=== PATIENT | female | born 1995 | race African-American/Black ===

== ENCOUNTER 2016-11-04 22:31 | Emergency (ER) | payer MEDICAID ==
[~2016-11-04] VITALS: Ht 165.1 cm; Wt 50.0 kg
[~2016-11-04 22:31] MED LIST: ARIP10TA14 PO; CARB200T PO; CLON2TAB4 PO; ESCI20TA PO; GABA-531; LEVE1000 PO; MIRT15TA6 PO; PHEN100C12; QUET200T PO
[2016-11-04] MEDS ORDERED: LORAZEPAM 2MG/ML CPJ ONE (22:42)
[2016-11-04] MEDS ORDERED: SODIUM CHLORIDE 0.9% 1,000 ML IV ONE (23:02)
[2016-11-04] MEDS ORDERED: LORAZEPAM 2MG/ML CPJ IV ONE ×2 (23:15)
[2016-11-04] MEDS ORDERED: LEVETIRACETAM 500MG PREMIX 100 ML IV ONE (23:15)
[2016-11-04 23:44] VITALS: BP 107/71
== END 2016-11-05 00:08 | disposition home or self-care (01) ==
LOC: ER 22:32
DX: G40.909 Epilepsy, unspecified, not intractable, without status epilepticus (principal); Z79.899 Other long term (current) drug therapy
CPT/HCPCS: 96374; 96376; 99284; J2060; Z7610; J7030

== ENCOUNTER 2017-08-14 20:45 | Inpatient (IN) | payer MEDICAID ==
[~2017-08-14] VITALS: Ht 170.2 cm; Wt 66.7 kg
[~2017-08-14 20:45] MED LIST changes: +ABIL10 PO; -ARIP10TA14 PO; +ETOMIDATE 2MG/ML 10ML VIAL IV ONE; +STERILE WATER FOR INJECTION 10ML VIAL ONE; +VECURONIUM BROMIDE 10 MG/VIAL IV ONE
[2017-08-14] MEDS ORDERED: SODIUM CHLORIDE 0.9% 1,000 ML IV ONE (20:57)
[2017-08-14] MEDS ORDERED: LEVETIRACETAM 1000MG/100ML 100 ML IV ONE (21:00)
[2017-08-14] MEDS ORDERED: LORAZEPAM 2MG/ML CPJ ONE ×3 (21:00→21:26)
[2017-08-14] MEDS ORDERED: LORAZEPAM 2MG/ML CPJ IV ONE ×2 (21:00→23:00)
[2017-08-14] MEDS ORDERED: VECURONIUM BROMIDE 10 MG/VIAL IV ONE (21:30)
[2017-08-14] MEDS ORDERED: PROPOFOL 10MG/ML 100ML 100 ML IV ONE (21:30)
[2017-08-14] MEDS ORDERED: ETOMIDATE 2MG/ML 10ML VIAL IV ONE (21:30)
[2017-08-14] MEDS ORDERED: MIDAZOLAM HCL 50 MG in DEXTROSE 5% WATER 40 ML IV ONE (21:30)
[2017-08-14] MEDS ORDERED: MIDAZOLAM 50 MG in DEXTROSE 5% WATER 50ML IV NR (21:45)
[2017-08-14] MEDS ORDERED: MIDAZOLAM HCL 50 MG in DEXTROSE 5% WATER 40 ML IV NR (21:45)
[2017-08-14 22:59] LABS: BG BASE EXCESS -1.4 mmol/L (-2.0-2.0); BG CARBOXYHEMOGLOBIN 0.5 % (0.5-1.5); BG DEOXYHEMOGLOBIN 0.2 % (0.0-5.0); BG FRACTION INSPIRED OXYGEN 100; BG HCO3 ACT 23.1 mmol/L (22.0-26.0); BG METHEMOGLOBIN 0.4 % (0.0-1.5); BG OXYGEN SATURATION 99.8 % (92.0-98.5); BG OXYHEMOGLOBIN 98.9 % (94.0-97.0); BG PCO2 37.9 mmHg (35.0-45.0); BG PH 7.402 (7.350-7.450); BG PO2 570.8 mmHg (75.0-100.0); BG SAMPLE SITE RIGHT BRACHIAL; BG TIDAL VOLUME(mL) 500 mL; BG VENT MODE VENT - A/C; BG VENT RATE 14 set
[2017-08-14 23:02] LABS: CARBON DIOXIDE 25 mEq/L (21-32); CHLORIDE 108 mEq/L (98-107)
[2017-08-14 23:03] LABS: PARTIAL THROMBOPLASTIN TIME 27.2 sec (23.4-31.0); PROTHROMBIN TIME 10.4 sec (9.4-11.6)
[2017-08-14 23:04] LABS: BASOPHILS % 0.6 % (0.0-2.0); EOSINOPHILS % 3.2 % (0.0-5.0); HEMOGLOBIN. 11.5 g/dL (12.0-16.0); LYMPHOCYTES % 34.4 % (20.0-50.0); MEAN CORPUSCULAR HEMOGLOBIN 33.1 pg (28.0-32.0); MEAN CORPUSCULAR VOLUME 98.3 fL (81.0-99.0); MEAN PLATELET VOLUME 8.3 fl (7.4-10.4); MONOCYTES % 7.5 % (2.0-8.0); NEUTROPHILS % 54.3 % (40.0-76.0); PLATELET 258 x1000/uL (130-400); RED BLOOD CELL COUNT 3.46 mill/uL (4.2-5.4)
[2017-08-14 23:08] LABS: ETHANOL BLOOD < 10 mg/dL; TROPONIN I < 0.02 ng/mL (0.00-0.04)
[2017-08-14 23:09] LABS: HCG SCREEN NEGATIVE
[2017-08-14 23:11] LABS: CARBAMAZEPINE < 0.5 ug/mL (4-12); PHENOBARBITAL < 2.1 ug/mL (15.0-40.0); VALPROIC ACID < 3.0 ug/mL (50-100)
[2017-08-14 23:28] LABS: CLARITY URINE CLEAR (CLEAR); COLOR URINE YELLOW (YELLOW); KETONES URINE NEGATIVE (NEGATIVE); LEUKOCYTE ESTERASE URINE 2+ (NEGATIVE); NITRITE URINE NEGATIVE (NEGATIVE); OCCULT BLOOD URINE NEGATIVE (NEGATIVE); PROTEIN URINE NEGATIVE (NEGATIVE); SPECIFIC GRAVITY URINE 1.015 (1.005-1.030)
[2017-08-14 23:42] LABS: *AMPHETAMINES SCREEN URINE NEGATIVE (NEGATIVE); *BARBITURATES SCREEN URINE NEGATIVE (NEGATIVE); *COCAINE SCREEN URINE NEGATIVE (NEGATIVE); METHADONE URINE SCREEN NEGATIVE (NEGATIVE); OPIATES URINE SCREEN NEGATIVE (NEGATIVE); PHENCYCLIDINE URINE SCREEN NEGATIVE (NEGATIVE)
[2017-08-14] MEDS ORDERED: PHENYTOIN SODIUM 1,000 MG in SODIUM CHLORIDE 0.9% 100 ML IV ONE (23:45)
[2017-08-15] VITALS (79 sets, daily range): BP systolic 85–134; BP diastolic 49–84
[2017-08-15 00:16] LABS: *BENZODIAZEPINES SCREEN URINE PRESUMTIVE POSITIVE (NEGATIVE); CANNABINOID URINE SCREEN PRESUMTIVE POSITIVE (NEGATIVE)
[2017-08-15] MEDS ORDERED: MIDAZOLAM HCL 100 MG in SODIUM CHLORIDE 0.9% 100 ML IV PRN (02:00)
[2017-08-15] MEDS ORDERED: MIDAZOLAM HCL 100 MG in SODIUM CHLORIDE 0.9% 80 ML IV PRN (02:30)
[2017-08-15] MEDS ORDERED: PANTOPRAZOLE SODIUM 40 MG/VIAL IV NR (04:00)
[2017-08-15] MEDS ORDERED: FENTANYL CITRATE/PF 500 MCG in SODIUM CHLORIDE 0.9% 40 ML IV PRN (04:00)
[2017-08-15 04:55] LABS: HEMATOCRIT 30.8 % (36.0-48.0); HEMOGLOBIN 10.2 g/dL (12.0-16.0); MEAN CORPUSCULAR HEMOGLOBIN 32.2 pg (28.0-32.0); MEAN CORPUSCULAR VOLUME 97.4 fL (81.0-99.0); PLATELET 230 x1000/uL (130-400); RED BLOOD CELL COUNT 3.16 mill/uL (4.2-5.4); RED CELL DISTRIBUTION WIDTH 12.7 % (11.6-14.6)
[2017-08-15 05:39] LABS: CARBON DIOXIDE 23 mEq/L (21-32); CHLORIDE 110 mEq/L (98-107)
[2017-08-15] MEDS: FENTANYL CITRATE/PF 500 MCG in SODIUM CHLORIDE 0.9% 40 ML IV PRN ×2 (05:53→21:44)
[2017-08-15] MEDS: PHENYTOIN SODIUM 100MG/2ML VIAL IV SCH ×3 (05:54→21:17)
[2017-08-15] MEDS: DEXT 5%/0.45% NACL 1000ML 1,000 ML IV SCH ×2 (05:56→17:32)
[2017-08-15 08:45] LABS: BG BASE EXCESS -0.6 mmol/L (-2.0-2.0); BG CARBOXYHEMOGLOBIN 0.3 % (0.5-1.5); BG DEOXYHEMOGLOBIN 0.4 % (0.0-5.0); BG FRACTION INSPIRED OXYGEN 50; BG HCO3 ACT 23.1 mmol/L (22.0-26.0); BG METHEMOGLOBIN 0.2 % (0.0-1.5); BG OXYGEN SATURATION 99.6 % (92.0-98.5); BG OXYHEMOGLOBIN 99.1 % (94.0-97.0); BG PCO2 34.7 mmHg (35.0-45.0); BG PH 7.441 (7.350-7.450); BG PO2 281.6 mmHg (75.0-100.0); BG SAMPLE SITE RIGHT RADIAL; BG TIDAL VOLUME(mL) 500 mL; BG TOTAL HEMOGLOBIN 11.3 g/dL (12.0-18.0); BG VENT MODE VENT - A/C; BG VENT RATE 14 set
[2017-08-15] MEDS ORDERED: LEVETIRACETAM 500MG TABLET PO SCH (09:00)
[2017-08-15] MEDS: PANTOPRAZOLE SODIUM 40 MG/VIAL IV SCH (09:04)
[2017-08-15] MEDS: ENOXAPARIN 40MG/0.4ML SYR SUBCUT SCH (09:05)
[2017-08-15] MEDS: PROPOFOL 10MG/ML 100ML 100 ML IV PRN ×2 (09:40→19:12)
[2017-08-15 10:07] LABS: PHOSPHORUS 2.8 mg/dL (2.5-4.9)
[2017-08-15] MEDS ORDERED: POTASSIUM CHLORIDE INJ 40 MEQ in DEXT 5% WATER 250 ML IV NR (11:00)
[2017-08-15] MEDS: CEFTRIAXONE 2 G in DEXTROSE 5% WATER 50 ML IV SCH (12:13)
[2017-08-15] MEDS ORDERED: THIAMINE HCL 100 MG in SODIUM CHLORIDE 0.9% 49 ML IV NR (15:30)
[2017-08-15] MEDS: CARBAMAZEPINE 200MG TABLET PO SCH (17:31)
[2017-08-15] MEDS: LEVETIRACETAM 500MG TABLET PO SCH (21:16)
[2017-08-15] MEDS: QUETIAPINE FUMARATE 100MG TABLET PO SCH (21:16)
[2017-08-16] VITALS (37 sets, daily range): BP systolic 97–142; BP diastolic 52–90
[2017-08-16] MEDS: PROPOFOL 10MG/ML 100ML 100 ML IV PRN (00:24)
[2017-08-16] MEDS ORDERED: FENTANYL CITRATE/PF 1,000 MCG in SODIUM CHLORIDE 0.9% 80 ML IV PRN (03:07)
[2017-08-16 05:56] LABS: HEMATOCRIT 33.6 % (36.0-48.0); MEAN CORPUSCULAR HEMOGLOBIN 32.1 pg (28.0-32.0); MEAN CORPUSCULAR VOLUME 98.4 fL (81.0-99.0); PLATELET 244 x1000/uL (130-400); RED BLOOD CELL COUNT 3.41 mill/uL (4.2-5.4); RED CELL DISTRIBUTION WIDTH 12.9 % (11.6-14.6)
[2017-08-16] MEDS: PHENYTOIN SODIUM 100MG/2ML VIAL IV SCH ×3 (06:08→22:36)
[2017-08-16 06:52] LABS: CARBON DIOXIDE 28 mEq/L (21-32); CHLORIDE 113 mEq/L (98-107)
[2017-08-16] MEDS: QUETIAPINE FUMARATE 100MG TABLET PO SCH ×2 (08:14→21:00)
[2017-08-16] MEDS: PANTOPRAZOLE SODIUM 40 MG/VIAL IV SCH (08:14)
[2017-08-16] MEDS: CARBAMAZEPINE 200MG TABLET PO SCH ×3 (08:14→18:13)
[2017-08-16] MEDS: ENOXAPARIN 40MG/0.4ML SYR SUBCUT SCH (08:15)
[2017-08-16] MEDS: LEVETIRACETAM 500MG TABLET PO SCH ×2 (08:15→22:36)
[2017-08-16 10:57] LABS: BG BASE EXCESS 0.6 mmol/L (-2.0-2.0); BG CARBOXYHEMOGLOBIN 0.3 % (0.5-1.5); BG DEOXYHEMOGLOBIN 0.9 % (0.0-5.0); BG HCO3 ACT 25.4 mmol/L (22.0-26.0); BG METHEMOGLOBIN 0.3 % (0.0-1.5); BG OXYGEN SATURATION 99.1 % (92.0-98.5); BG OXYHEMOGLOBIN 98.5 % (94.0-97.0); BG PCO2 41.4 mmHg (35.0-45.0); BG PH 7.406 (7.350-7.450); BG PO2 200.4 mmHg (75.0-100.0); BG SAMPLE SITE RIGHT RADIAL; BG TIDAL VOLUME(mL) 450 mL; BG TOTAL HEMOGLOBIN 11.5 g/dL (12.0-18.0); BG VENT MODE VENT - SIMV; BG VENT RATE 12 set
[2017-08-16] MEDS ORDERED: PROPOFOL 10MG/ML 100ML 100 ML IV PRN (11:00)
[2017-08-16] MEDS: CEFTRIAXONE 2 G in DEXTROSE 5% WATER 50 ML IV SCH (11:07)
[2017-08-16 14:32] LABS: BG CARBOXYHEMOGLOBIN 0.3 % (0.5-1.5); BG DEOXYHEMOGLOBIN 1.2 % (0.0-5.0); BG FRACTION INSPIRED OXYGEN 30; BG HCO3 ACT 25.6 mmol/L (22.0-26.0); BG OXYGEN SATURATION 98.8 % (92.0-98.5); BG OXYHEMOGLOBIN 98.5 % (94.0-97.0); BG PCO2 41.2 mmHg (35.0-45.0); BG PH 7.412 (7.350-7.450); BG PO2 150.3 mmHg (75.0-100.0); BG PRESSURE SUPPORT 8; BG SAMPLE SITE LEFT RADIAL; BG TOTAL HEMOGLOBIN 12.1 g/dL (12.0-18.0); BG VENT MODE VENT - CPAP
[2017-08-16] MEDS ORDERED: ARIPIPRAZOLE 10MG TABLET PO SCH (18:15)
[2017-08-16] MEDS ORDERED: CLONAZEPAM 1MG TABLET PO SCH (20:00)
[2017-08-17] VITALS (12 sets, daily range): BP systolic 93–122; BP diastolic 45–71
[2017-08-17] MEDS: PHENYTOIN SODIUM 100MG/2ML VIAL IV SCH (05:03)
== END 2017-08-17 06:45 | disposition left against medical advice (07) | DRG 133 ==
LOC: ER 20:50 → CVICU 23:45 → EDBEDREQ 23:49 → ENRESERV 08-15 00:07
PROVIDERS: ADMIT Hospitalist; ATTEND Hospitalist
PROC: 5A1945Z Respiratory Ventilation, 24-96 Consecutive Hours (ICD-10-PCS; principal; 2017-08-14)
PROC: 0BH17EZ Insertion of Endotracheal Airway into Trachea, Via Natural or Artificial Opening (ICD-10-PCS; 2017-08-14)
PROC: 02HV33Z Insertion of Infusion Device into Superior Vena Cava, Percutaneous Approach (ICD-10-PCS; 2017-08-15)
PROC: B548ZZA Ultrasonography of Superior Vena Cava, Guidance (ICD-10-PCS; 2017-08-15)
DX: J96.00 Acute respiratory failure, unspecified whether with hypoxia or hypercapnia (principal); G40.411 Other generalized epilepsy and epileptic syndromes, intractable, with status epilepticus; R65.10 Systemic inflammatory response syndrome (SIRS) of non-infectious origin without acute organ dysfunction; N30.90 Cystitis, unspecified without hematuria; F12.90 Cannabis use, unspecified, uncomplicated; D64.9 Anemia, unspecified; Z53.21 Procedure and treatment not carried out due to patient leaving prior to being seen by health care provider; Z78.1 Physical restraint status; Z79.899 Other long term (current) drug therapy; Z91.14 Patient's other noncompliance with medication regimen; G40.901 Epilepsy, unspecified, not intractable, with status epilepticus
CPT/HCPCS: 31500; 36415; 36569; 36600; 51702; 70450; 70551; 71045; 76937; 80048; 80053; 80156; 80165; 80184; 80185; 80305; 81001; 82375; 82805; 83735; 84100; 84478; 84484; 84703; 85025; 85027; 85610; 85730; 86850; 86900; 87070; 87086; 93005; 94002; 94003; 96365; 99291; A4216; C1725; C1769; C9113; G0482; J0696; J1165; J1650; J1953; J2060; J2250; J2704; J3010; J3411; J3480; J3490; J7030; J7050; J7060; A4315

== ENCOUNTER 2021-06-25 17:54 | Emergency (ER) | payer MEDICAID ==
[~2021-06-25] VITALS: Ht 165.1 cm; Wt 145.0 kg
[~2021-06-25 17:54] MED LIST changes: +CLON2TAB11 PO; -CLON2TAB4 PO; -ETOMIDATE 2MG/ML 10ML VIAL IV ONE; -GABA-531; +GABA-532; +MIRT-89 PO; -MIRT15TA6 PO; -STERILE WATER FOR INJECTION 10ML VIAL ONE; -VECURONIUM BROMIDE 10 MG/VIAL IV ONE
[2021-06-25 17:58] VITALS: BP 134/93
[2021-06-25 21:40] LABS: BASOPHILS % 0.6 % (0.0-2.0); EOSINOPHILS % 1.4 % (0.0-5.0); HEMATOCRIT. 35.5 % (36.0-48.0); HEMOGLOBIN. 11.6 g/dL (12.0-16.0); MEAN CORPUSCULAR HEMOGLOBIN 32.5 pg (28.0-32.0); MEAN CORPUSCULAR VOLUME 99.7 fL (81.0-99.0); MEAN PLATELET VOLUME 8.5 fl (7.4-10.4); MONOCYTES % 8.8 % (2.0-8.0); NEUTROPHILS % 58.2 % (40.0-76.0); PLATELET 197 x1000/uL (130-400); RED BLOOD CELL COUNT 3.56 mill/uL (4.2-5.4); RED CELL DISTRIBUTION WIDTH 14.7 % (11.6-14.6)
[2021-06-25 21:51] LABS: CHLORIDE 112 mEq/L (98-107)
[2021-06-25 21:55] LABS: ETHANOL BLOOD < 10 mg/dL
[2021-06-26] MEDS ORDERED: ONDA4TAB11 PO (15:10)
== END 2021-06-25 22:55 | disposition left against medical advice (07) ==
LOC: ER 17:54
DX: G43.909 Migraine, unspecified, not intractable, without status migrainosus (principal); R50.9 Fever, unspecified; Z53.21 Procedure and treatment not carried out due to patient leaving prior to being seen by health care provider
CPT/HCPCS: 36415; 80053; 80185; 80320; 82962; 85025; G0480

== ENCOUNTER 2021-06-26 06:52 | Emergency (ER) | payer MEDICAID ==
[~2021-06-26] VITALS: Ht 157.5 cm; Wt 63.2 kg
[2021-06-26] MEDS ORDERED: LORAZEPAM 2MG/ML CPJ IV PRN (07:00)
[2021-06-26] MEDS ORDERED: LEVETIRACETAM 1000MG PREMIX 100 ML IV ONE (07:00)
[2021-06-26] MEDS ORDERED: SODIUM CHLORIDE 0.9% 1,000 ML IV ONE (07:00)
[2021-06-26 08:04] LABS: CHLORIDE 110 mEq/L (98-107)
[2021-06-26 08:08] LABS: ETHANOL BLOOD < 10 mg/dL
[2021-06-26 08:10] LABS: BASOPHILS % 0.6 % (0.0-2.0); EOSINOPHILS % 0.6 % (0.0-5.0); HEMATOCRIT. 33.9 % (36.0-48.0); MEAN CORPUSCULAR HEMOGLOBIN 32.5 pg (28.0-32.0); MONOCYTES % 10.3 % (2.0-8.0); NEUTROPHILS % 53.5 % (40.0-76.0); PLATELET 268 x1000/uL (130-400); RED BLOOD CELL COUNT 3.38 mill/uL (4.2-5.4)
[2021-06-26] MEDS ORDERED: LORAZEPAM 2MG/ML CPJ IM STA (08:27)
[2021-06-26] MEDS ORDERED: LIDOCAINE HCL 1% 10 MG/ML 10ML VIAL ONE (10:22)
[2021-06-26] MEDS ORDERED: PHENYTOIN SODIUM 100MG/2ML VIAL IV ONE (12:45)
[2021-06-26 13:07] LABS: CLARITY URINE CLEAR (CLEAR); COLOR URINE YELLOW (YELLOW); KETONES URINE NEGATIVE (NEGATIVE); LEUKOCYTE ESTERASE URINE NEGATIVE (NEGATIVE); NITRITE URINE NEGATIVE (NEGATIVE); OCCULT BLOOD URINE NEGATIVE (NEGATIVE); PROTEIN URINE NEGATIVE (NEGATIVE); SPECIFIC GRAVITY URINE 1.015 (1.005-1.030)
[2021-06-26 13:46] LABS: *AMPHETAMINES SCREEN URINE NEGATIVE (NEGATIVE); CANNABINOID URINE SCREEN PRESUMTIVE POSITIVE (NEGATIVE)
[2021-06-26 13:47] LABS: *BARBITURATES SCREEN URINE NEGATIVE (NEGATIVE); *COCAINE SCREEN URINE NEGATIVE (NEGATIVE); METHADONE URINE SCREEN NEGATIVE (NEGATIVE); PHENCYCLIDINE URINE SCREEN NEGATIVE (NEGATIVE)
[2021-06-26 13:49] LABS: *BENZODIAZEPINES SCREEN URINE PRESUMTIVE POSITIVE (NEGATIVE)
[2021-06-26 13:50] LABS: OPIATES URINE SCREEN PRESUMTIVE POSITIVE (NEGATIVE)
[2021-06-26] MEDS ORDERED: ONDA4TAB11 PO (15:10)
[2021-06-26 16:00] VITALS: BP 124/72
== END 2021-06-26 16:28 | disposition home or self-care (01) ==
LOC: ER 06:52 → CANBEDREQ 16:44
DX: G40.909 Epilepsy, unspecified, not intractable, without status epilepticus (principal); F12.10 Cannabis abuse, uncomplicated; Z79.899 Other long term (current) drug therapy
CPT/HCPCS: 36415; 70450; 71045; 76937; 80053; 80185; 80305; 80320; 81003; 81025; 82140; 82962; 83880; 84484; 85025; 93005; 96365; 96366; 96372; 96375; 99291; C1725; J1165; J1953; J2060; J3490; J7030; G0480

== ENCOUNTER 2021-07-08 18:55 | Inpatient (IN) | payer MEDICAID, OTHER ==
[~2021-07-08] VITALS: Ht 167.6 cm; Wt 66.8 kg
[~2021-07-08 18:55] MED LIST changes: +ONDA4TAB11 PO
[2021-07-08] MEDS ORDERED: LORAZEPAM 2MG/ML CPJ IM ONE (20:00)
[2021-07-08] MEDS ORDERED: MIDAZOLAM HCL 2 MG/2 ML VIAL IM ONE ×3 (20:15→20:30)
[2021-07-08] MEDS ORDERED: LEVETIRACETAM 500MG PREMIX 100 ML IV ONE ×8 (20:15→20:45)
[2021-07-08] MEDS ORDERED: LEVETIRACETAM 1,500 MG in SODIUM CHLORIDE 0.9% 100 ML IV ONE (21:00)
[2021-07-08] MEDS ORDERED: LEVETIRACETAM 1,500 MG in SODIUM CHLORIDE 0.9% 100 ML IV SCH (21:00)
[2021-07-08] MEDS ORDERED: MIDAZOLAM HCL 100 MG in SODIUM CHLORIDE 0.9% 100 ML IV PRN (21:30)
[2021-07-08] MEDS ORDERED: FENTANYL CITRATE 2,500 MCG in SODIUM CHLORIDE 0.9% 200 ML IV PRN (21:30)
[2021-07-08 22:14] LABS: BG BASE EXCESS -4.1 mmol/L (-2.0-2.0); BG CARBOXYHEMOGLOBIN 0.4 % (0.5-1.5); BG DEOXYHEMOGLOBIN 4.7 % (0.0-5.0); BG FRACTION INSPIRED OXYGEN 100; BG HCO3 ACT 20.1 mmol/L (22.0-26.0); BG METHEMOGLOBIN 0.1 % (0.0-1.5); BG OXYGEN SATURATION 95.3 % (92.0-98.5); BG OXYHEMOGLOBIN 94.8 % (94.0-97.0); BG PCO2 33.7 mmHg (35.0-45.0); BG PH 7.394 (7.350-7.450); BG PO2 75.8 mmHg (75.0-100.0); BG SAMPLE SITE CL; BG TOTAL HEMOGLOBIN 10.5 g/dL (12.0-18.0); BG TOTAL RESPIRATORY RATE 14 b/min; BG VENT MODE VENT - AC
[2021-07-08] MEDS ORDERED: LORAZEPAM 2MG/ML CPJ IV ONE (22:45)
[2021-07-08] MEDS ORDERED: PROPOFOL 10MG/ML 100ML 100 ML IV SCH (22:45)
[2021-07-09] VITALS (44 sets, daily range): BP systolic 99–150; BP diastolic 66–94
[2021-07-09 00:15] LABS: BG BASE EXCESS -1.2 mmol/L (-2.0-2.0); BG CARBOXYHEMOGLOBIN 0.3 % (0.5-1.5); BG DEOXYHEMOGLOBIN 0.1 % (0.0-5.0); BG FRACTION INSPIRED OXYGEN 100; BG HCO3 ACT 23.9 mmol/L (22.0-26.0); BG METHEMOGLOBIN 0.2 % (0.0-1.5); BG OXYGEN SATURATION 99.9 % (92.0-98.5); BG OXYHEMOGLOBIN 99.4 % (94.0-97.0); BG PCO2 41.2 mmHg (35.0-45.0); BG PH 7.381 (7.350-7.450); BG SAMPLE SITE RIGHT BRACHIAL; BG VENT MODE VENT - AC
[2021-07-09 02:27] LABS: BASOPHILS % 0.2 % (0.0-2.0); EOSINOPHILS % 0.4 % (0.0-5.0); HEMATOCRIT. 32.4 % (36.0-48.0); HEMOGLOBIN. 10.6 g/dL (12.0-16.0); LYMPHOCYTES % 12.6 % (20.0-50.0); MEAN CORPUSCULAR HEMOGLOBIN 32.7 pg (28.0-32.0); MEAN CORPUSCULAR VOLUME 99.3 fL (81.0-99.0); MEAN PLATELET VOLUME 7.6 fl (7.4-10.4); MONOCYTES % 10.9 % (2.0-8.0); NEUTROPHILS % 75.9 % (40.0-76.0); PLATELET 200 x1000/uL (130-400); RED BLOOD CELL COUNT 3.26 mill/uL (4.2-5.4)
[2021-07-09 02:32] LABS: CHLORIDE 111 mEq/L (98-107)
[2021-07-09 04:08] LABS: ETHANOL BLOOD < 10 mg/dL
[2021-07-09] MEDS ORDERED: PROPOFOL 10MG/ML 100ML 100 ML IV PRN (04:30)
[2021-07-09] MEDS: DEXT 5%/0.9% NACL KCL 20MEQ/L 1,000 ML IV SCH ×2 (06:44→16:11)
[2021-07-09] MEDS ORDERED: VECURONIUM BROMIDE 10 MG/VIAL IV ONE (07:58)
[2021-07-09] MEDS ORDERED: SODIUM CHLORIDE 0.9% 10ML VIAL ONE ×2 (07:58→08:00)
[2021-07-09] MEDS ORDERED: ETOMIDATE 2MG/ML 10ML VIAL IV ONE (08:00)
[2021-07-09] MEDS ORDERED: IPRATROPIUM/ALBUTEROL 0.5-3(2.5)MG/3ML NEB HHN PRN (09:00)
[2021-07-09] MEDS ORDERED: LEVETIRACETAM 500MG PREMIX 100 ML IV SCH (09:00)
[2021-07-09] MEDS: PANTOPRAZOLE SODIUM 40 MG/VIAL IV SCH (09:14)
[2021-07-09] MEDS: LEVETIRACETAM 1,000 MG in SODIUM CHLORIDE 0.9% 100 ML IV SCH ×2 (09:15→21:24)
[2021-07-09] MEDS ORDERED: *PATIENT'S OWN MEDICATION STORAGE XX SCH (09:30)
[2021-07-09] MEDS: MIDAZOLAM HCL 100 MG in SODIUM CHLORIDE 0.9% 80 ML IV PRN ×2 (09:44→17:14)
[2021-07-09] MEDS: IPRATROPIUM/ALBUTEROL 0.5-3(2.5)MG/3ML NEB HHN SCH ×2 (13:17→21:48)
[2021-07-09] MEDS: PHENYTOIN SODIUM 100MG/2ML VIAL IV SCH ×2 (13:55→21:26)
[2021-07-09] MEDS ORDERED: CLONIDINE 0.1MG TABLET PO PRN (15:30)
[2021-07-09] MEDS ORDERED: MAGNESIUM/ALUMINUM HYDROXIDE/SIMETHICONE 30ML UDC PO PRN (15:30)
[2021-07-09] MEDS ORDERED: ONDANSETRON HCL 4MG/2ML INJ IV PRN (15:30)
[2021-07-09] MEDS ORDERED: DOCUSATE SODIUM 100MG CAPSULE PO PRN (15:30)
[2021-07-09] MEDS ORDERED: ACETAMINOPHEN 325MG TABLET PO PRN (15:30)
[2021-07-09] MEDS ORDERED: HYDROCODONE/ACETAMINOPHEN 5/325MG TABLET PO PRN (15:30)
[2021-07-09] MEDS ORDERED: NALOXONE HCL 0.4MG/ML VIAL IV PRN (15:45)
[2021-07-09] MEDS: ENOXAPARIN 40MG/0.4ML SYR SUBCUT SCH (16:11)
[2021-07-09] MEDS: LORAZEPAM 2MG/ML CPJ IV PRN (18:32)
[2021-07-09] MEDS: FENTANYL CITRATE/PF 2,500 MCG in SODIUM CHLORIDE 0.9% 200 ML IV PRN (19:20)
[2021-07-09 21:36] LABS: *AMPHETAMINES SCREEN URINE NEGATIVE (NEGATIVE); *BARBITURATES SCREEN URINE NEGATIVE (NEGATIVE)
[2021-07-09 21:37] LABS: *COCAINE SCREEN URINE NEGATIVE (NEGATIVE); METHADONE URINE SCREEN NEGATIVE (NEGATIVE); OPIATES URINE SCREEN NEGATIVE (NEGATIVE); PHENCYCLIDINE URINE SCREEN NEGATIVE (NEGATIVE)
[2021-07-09 21:41] LABS: *BENZODIAZEPINES SCREEN URINE PRESUMTIVE POSITIVE (NEGATIVE); CANNABINOID URINE SCREEN PRESUMTIVE POSITIVE (NEGATIVE)
[2021-07-10] VITALS (48 sets, daily range): BP systolic 112–139; BP diastolic 66–88
[2021-07-10] MEDS: IPRATROPIUM/ALBUTEROL 0.5-3(2.5)MG/3ML NEB HHN SCH ×4 (02:29→20:24)
[2021-07-10] MEDS: DEXT 5%/0.9% NACL KCL 20MEQ/L 1,000 ML IV SCH ×3 (02:38→21:06)
[2021-07-10] MEDS: MIDAZOLAM HCL 100 MG in SODIUM CHLORIDE 0.9% 80 ML IV PRN ×3 (03:41→22:14)
[2021-07-10] MEDS: FENTANYL CITRATE/PF 2,500 MCG in SODIUM CHLORIDE 0.9% 200 ML IV PRN ×3 (03:42→22:15)
[2021-07-10] MEDS: PHENYTOIN SODIUM 100MG/2ML VIAL IV SCH ×3 (05:31→21:06)
[2021-07-10 05:55] LABS: HEMATOCRIT. 30.7 % (36.0-48.0); HEMOGLOBIN. 10.4 g/dL (12.0-16.0); MEAN CORPUSCULAR HEMOGLOBIN 33.5 pg (28.0-32.0); MEAN CORPUSCULAR VOLUME 99.4 fL (81.0-99.0); MEAN PLATELET VOLUME 8.3 fl (7.4-10.4); PLATELET 191 x1000/uL (130-400); RED BLOOD CELL COUNT 3.09 mill/uL (4.2-5.4); RED CELL DISTRIBUTION WIDTH 14.4 % (11.6-14.6)
[2021-07-10 06:00] LABS: CHLORIDE 115 mEq/L (98-107)
[2021-07-10 06:07] LABS: PHOSPHORUS 2.8 mg/dL (2.5-4.9)
[2021-07-10 06:08] LABS: LDL CHOLESTEROL 70 mg/dL (5-100)
[2021-07-10 06:09] LABS: HDL CHOLESTEROL 45 mg/dL (40-59); T4 FREE 1.14 ng/dL (0.76-1.46)
[2021-07-10 07:53] LABS: BG BASE EXCESS -3.2 mmol/L (-2.0-2.0); BG CARBOXYHEMOGLOBIN 0.3 % (0.5-1.5); BG DEOXYHEMOGLOBIN 0.7 % (0.0-5.0); BG HCO3 ACT 20.6 mmol/L (22.0-26.0); BG METHEMOGLOBIN 0.3 % (0.0-1.5); BG OXYGEN SATURATION 99.3 % (92.0-98.5); BG OXYHEMOGLOBIN 98.7 % (94.0-97.0); BG PCO2 32.7 mmHg (35.0-45.0); BG PH 7.417 (7.350-7.450); BG PO2 185.4 mmHg (75.0-100.0); BG SAMPLE SITE RIGHT RADIAL; BG TOTAL HEMOGLOBIN 10.8 g/dL (12.0-18.0); BG VENT MODE VENT - AC
[2021-07-10] MEDS: PANTOPRAZOLE SODIUM 40 MG/VIAL IV SCH (08:32)
[2021-07-10] MEDS: LEVETIRACETAM 1,000 MG in SODIUM CHLORIDE 0.9% 100 ML IV SCH ×2 (08:32→20:38)
[2021-07-10 14:57] LABS: BG BASE EXCESS -4.4 mmol/L (-2.0-2.0); BG CARBOXYHEMOGLOBIN 0.3 % (0.5-1.5); BG DEOXYHEMOGLOBIN 6.2 % (0.0-5.0); BG FRACTION INSPIRED OXYGEN 40; BG HCO3 ACT 22.5 mmol/L (22.0-26.0); BG METHEMOGLOBIN 0.2 % (0.0-1.5); BG OXYGEN SATURATION 93.8 % (92.0-98.5); BG OXYHEMOGLOBIN 93.3 % (94.0-97.0); BG PCO2 49.3 mmHg (35.0-45.0); BG PH 7.277 (7.350-7.450); BG PO2 82.2 mmHg (75.0-100.0); BG SAMPLE SITE RIGHT RADIAL; BG TOTAL HEMOGLOBIN 11.1 g/dL (12.0-18.0); BG TOTAL RESPIRATORY RATE 20 b/min; BG VENT MODE VENT - CPAP
[2021-07-10] MEDS: ENOXAPARIN 40MG/0.4ML SYR SUBCUT SCH (15:59)
[2021-07-10 18:18] LABS: PLATELET ESTIMATE NORMAL
[2021-07-10 21:35] LABS: HCG SCREEN NEGATIVE
[2021-07-10] MEDS: LORAZEPAM 2MG/ML CPJ IV PRN (23:21)
[2021-07-11] VITALS (21 sets, daily range): BP systolic 114–141; BP diastolic 70–96
[2021-07-11] MEDS: IPRATROPIUM/ALBUTEROL 0.5-3(2.5)MG/3ML NEB HHN SCH ×2 (00:55→08:54)
[2021-07-11] MEDS: FENTANYL CITRATE/PF 2,500 MCG in SODIUM CHLORIDE 0.9% 200 ML IV PRN (05:07)
[2021-07-11] MEDS: MIDAZOLAM HCL 100 MG in SODIUM CHLORIDE 0.9% 80 ML IV PRN (05:08)
[2021-07-11] MEDS: PHENYTOIN SODIUM 100MG/2ML VIAL IV SCH (05:11)
[2021-07-11 06:10] LABS: CHLORIDE 112 mEq/L (98-107)
[2021-07-11 06:12] LABS: HEMATOCRIT. 29.1 % (36.0-48.0); HEMOGLOBIN. 9.7 g/dL (12.0-16.0); MEAN CORPUSCULAR HEMOGLOBIN 32.6 pg (28.0-32.0); MEAN CORPUSCULAR VOLUME 98.1 fL (81.0-99.0); MEAN PLATELET VOLUME 8.7 fl (7.4-10.4); PLATELET 175 x1000/uL (130-400); RED BLOOD CELL COUNT 2.97 mill/uL (4.2-5.4); RED CELL DISTRIBUTION WIDTH 14.2 % (11.6-14.6)
[2021-07-11] MEDS: PANTOPRAZOLE SODIUM 40 MG/VIAL IV SCH (08:00)
[2021-07-11] MEDS: DEXT 5%/0.9% NACL KCL 20MEQ/L 1,000 ML IV SCH (08:00)
[2021-07-11] MEDS: LEVETIRACETAM 1,000 MG in SODIUM CHLORIDE 0.9% 100 ML IV SCH (08:00)
[2021-07-11] MEDS ORDERED: RACEPINEPHRINE 2.25% 0.5ML NEB VIAL HHN SCH (10:30)
[2021-07-11] MEDS ORDERED: RACEPINEPHRINE 2.25% 0.5ML NEB VIAL HHN PRN (10:30)
[2021-07-11 14:18] LABS: PLATELET ESTIMATE NORMAL
== END 2021-07-11 10:45 | disposition left against medical advice (07) | DRG 53 ==
LOC: ER 18:55 → MICUNO 23:59 → EDBEDREQ 07-09 00:06 → EDBEDREQDT 07-09 00:06 → EDBEDREQTM 07-09 00:06 → ENRESERV 07-09 01:08 → MICUNO 07-09 06:36
PROVIDERS: ADMIT Internal Medicine; ATTEND Internal Medicine
PROC: 0BH17EZ Insertion of Endotracheal Airway into Trachea, Via Natural or Artificial Opening (ICD-10-PCS; principal; 2021-07-08)
PROC: 5A1945Z Respiratory Ventilation, 24-96 Consecutive Hours (ICD-10-PCS; 2021-07-08)
PROC: B548ZZA Ultrasonography of Superior Vena Cava, Guidance (ICD-10-PCS; 2021-07-08)
PROC: 02HV33Z Insertion of Infusion Device into Superior Vena Cava, Percutaneous Approach (ICD-10-PCS; 2021-07-08)
PROC: 4A10X4Z Monitoring of Central Nervous Electrical Activity, External Approach (ICD-10-PCS; 2021-07-10)
DX: G40.901 Epilepsy, unspecified, not intractable, with status epilepticus (principal); J96.00 Acute respiratory failure, unspecified whether with hypoxia or hypercapnia; D64.9 Anemia, unspecified; Z53.29 Procedure and treatment not carried out because of patient's decision for other reasons; T42.6X6A Underdosing of other antiepileptic and sedative-hypnotic drugs, initial encounter; Y92.89 Other specified places as the place of occurrence of the external cause; Z79.899 Other long term (current) drug therapy; Z78.1 Physical restraint status
CPT/HCPCS: 36415; 36600; 71045; 71250; 80048; 80053; 80061; 80185; 80305; 80320; 82375; 82805; 83605; 83735; 84100; 84439; 84443; 84484; 84703; 85025; 87070; 93005; 93970; 95816; 99285; C9113; J1165; J1650; J1953; J2060; J2250; J2704; J3010; J3490; J7050; A4315; G0480

== ENCOUNTER 2021-10-15 13:40 | Inpatient (IN) | payer OTHER ==
[~2021-10-15] VITALS: Ht 165.1 cm; Wt 71.4 kg
[2021-10-15] MEDS ORDERED: LEVETIRACETAM 500MG PREMIX 100 ML IV ONE ×4 (14:15)
[2021-10-15 14:30] LABS: BASOPHILS % 0.8 % (0.0-2.0); EOSINOPHILS % 3.9 % (0.0-5.0); HEMATOCRIT. 33.9 % (36.0-48.0); LYMPHOCYTES % 47.9 % (20.0-50.0); MEAN CORPUSCULAR HEMOGLOBIN 30.9 pg (28.0-32.0); MEAN CORPUSCULAR VOLUME 95.1 fL (81.0-99.0); MEAN PLATELET VOLUME 7.9 fl (7.4-10.4); MONOCYTES % 9.9 % (2.0-8.0); NEUTROPHILS % 37.5 % (40.0-76.0); PLATELET 241 x1000/uL (130-400); RED BLOOD CELL COUNT 3.56 mill/uL (4.2-5.4); RED CELL DISTRIBUTION WIDTH 14.5 % (11.6-14.6)
[2021-10-15 14:37] LABS: CHLORIDE 108 mEq/L (98-107)
[2021-10-15 14:41] LABS: ETHANOL BLOOD < 10 mg/dL
[2021-10-15] MEDS ORDERED: LIDOCAINE HCL/PF 1% 10 MG/ML 5ML VIAL ONE (14:46)
[2021-10-15 14:48] LABS: B-HCG QUANTITATIVE < 1 mIU/mL (<3)
[2021-10-15] MEDS ORDERED: ETOMIDATE 2MG/ML 10ML VIAL IV ONE (15:45)
[2021-10-15] MEDS ORDERED: PROPOFOL 200MG/20ML VIAL IV NR (16:00)
[2021-10-15] MEDS ORDERED: FENTANYL CITRATE/PF 50MCG/ML 1ML VIAL IV NR (16:00)
[2021-10-15] MEDS ORDERED: PROPOFOL 10MG/ML 100ML 100 ML IV PRN (16:30)
[2021-10-15] MEDS ORDERED: FENTANYL CITRATE/PF 50MCG/ML 2ML VIAL IV ONE (18:15)
[2021-10-15] MEDS ORDERED: CLONIDINE 0.1MG TABLET PO PRN (18:45)
[2021-10-15] MEDS ORDERED: ONDANSETRON HCL 4MG/2ML INJ IV PRN (18:45)
[2021-10-15] MEDS ORDERED: IPRATROPIUM/ALBUTEROL 0.5-3(2.5)MG/3ML NEB HHN PRN (18:45)
[2021-10-15 19:00] LABS: CLARITY URINE CLOUDY (CLEAR); COLOR URINE RED (YELLOW); KETONES URINE NEGATIVE (NEGATIVE); LEUKOCYTE ESTERASE URINE TRACE (NEGATIVE); NITRITE URINE NEGATIVE (NEGATIVE); OCCULT BLOOD URINE 3+ (NEGATIVE); PH URINE 7.5 (4.5-8.0); PROTEIN URINE 1+ (NEGATIVE); UROBILINOGEN URINE 0.2 E.U./dL (0.2-1.0)
[2021-10-15 19:12] LABS: *AMPHETAMINES SCREEN URINE NEGATIVE (NEGATIVE); *BARBITURATES SCREEN URINE NEGATIVE (NEGATIVE)
[2021-10-15 19:13] LABS: *COCAINE SCREEN URINE NEGATIVE (NEGATIVE); METHADONE URINE SCREEN NEGATIVE (NEGATIVE); OPIATES URINE SCREEN NEGATIVE (NEGATIVE); PHENCYCLIDINE URINE SCREEN NEGATIVE (NEGATIVE)
[2021-10-15 19:16] LABS: *BENZODIAZEPINES SCREEN URINE PRESUMTIVE POSITIVE (NEGATIVE); CANNABINOID URINE SCREEN PRESUMTIVE POSITIVE (NEGATIVE)
[2021-10-15] MEDS ORDERED: LEVETIRACETAM 500MG PREMIX 100 ML IV SCH (21:00)
[2021-10-15] MEDS ORDERED: FENTANYL 2500MCG/250ML PMX 250 ML IV PRN (22:45)
[2021-10-15] MEDS: LORAZEPAM 2MG/ML CPJ IV PRN (22:54)
[2021-10-15 23:55] VITALS: BP 68/42
[2021-10-15 23:57] VITALS: BP 125/85
[2021-10-16] VITALS (93 sets, daily range): BP systolic 107–149; BP diastolic 68–111
[2021-10-16 00:09] LABS: BG BASE EXCESS 1.5 mmol/L (-2.0-2.0); BG CARBOXYHEMOGLOBIN 0.3 % (0.5-1.5); BG DEOXYHEMOGLOBIN 0.1 % (0.0-5.0); BG FRACTION INSPIRED OXYGEN 100; BG HCO3 ACT 25.7 mmol/L (22.0-26.0); BG METHEMOGLOBIN 0.2 % (0.0-1.5); BG OXYGEN SATURATION 99.9 % (92.0-98.5); BG OXYHEMOGLOBIN 99.4 % (94.0-97.0); BG PCO2 38.8 mmHg (35.0-45.0); BG PH 7.439 (7.350-7.450); BG PO2 464.7 mmHg (75.0-100.0); BG SAMPLE SITE RIGHT RADIAL; BG TOTAL HEMOGLOBIN 10.5 g/dL (12.0-18.0); BG TOTAL RESPIRATORY RATE 12 b/min; BG VENT MODE VENT - AC
[2021-10-16] MEDS ORDERED: PROPOFOL 10MG/ML 100ML 100 ML IV PRN (00:45)
[2021-10-16] MEDS: MIDAZOLAM HCL 100 MG in SODIUM CHLORIDE 0.9% 80 ML IV PRN (00:55)
[2021-10-16] MEDS: FENTANYL 2500MCG/250ML PMX 250 ML IV PRN ×2 (00:55→23:08)
[2021-10-16] MEDS: LORAZEPAM 2MG/ML CPJ IV PRN ×2 (00:58→22:46)
[2021-10-16 02:50] LABS: CREATINE KINASE 148 IU/L (26-192)
[2021-10-16 02:51] LABS: CREATINE KINASE MB FRACTION < 1.0 ng/mL (0.5-3.6)
[2021-10-16 05:48] LABS: CHLORIDE 111 mEq/L (98-107)
[2021-10-16 05:55] LABS: BASOPHILS % 0.7 % (0.0-2.0); EOSINOPHILS % 2.7 % (0.0-5.0); HEMATOCRIT. 28.7 % (36.0-48.0); HEMOGLOBIN. 9.7 g/dL (12.0-16.0); MEAN CORPUSCULAR HEMOGLOBIN 31.8 pg (28.0-32.0); MEAN CORPUSCULAR VOLUME 93.8 fL (81.0-99.0); MEAN PLATELET VOLUME 7.8 fl (7.4-10.4); NEUTROPHILS % 57.6 % (40.0-76.0); PLATELET 232 x1000/uL (130-400); RED BLOOD CELL COUNT 3.06 mill/uL (4.2-5.4)
[2021-10-16 06:00] LABS: LDL CHOLESTEROL 66 mg/dL (5-100)
[2021-10-16 06:02] LABS: HDL CHOLESTEROL 61 mg/dL (40-59)
[2021-10-16 06:05] LABS: CREATINE KINASE 143 IU/L (26-192)
[2021-10-16 06:07] LABS: CREATINE KINASE MB FRACTION < 1.0 ng/mL (0.5-3.6)
[2021-10-16 07:46] LABS: BG BASE EXCESS 1.4 mmol/L (-2.0-2.0); BG CARBOXYHEMOGLOBIN 0.2 % (0.5-1.5); BG DEOXYHEMOGLOBIN 0.5 % (0.0-5.0); BG HCO3 ACT 25.5 mmol/L (22.0-26.0); BG METHEMOGLOBIN 0.1 % (0.0-1.5); BG OXYGEN SATURATION 99.5 % (92.0-98.5); BG OXYHEMOGLOBIN 99.2 % (94.0-97.0); BG PCO2 38.4 mmHg (35.0-45.0); BG PO2 237.8 mmHg (75.0-100.0); BG SAMPLE SITE RIGHT BRACHIAL; BG TOTAL HEMOGLOBIN 12.4 g/dL (12.0-18.0); BG VENT MODE VENT - AC
[2021-10-16] MEDS: PHENYTOIN SODIUM 300MG in SODIUM CHLORIDE 0.9% 50ML IV SCH ×2 (09:26→16:50)
[2021-10-16] MEDS: LEVETIRACETAM 500MG PREMIX 100 ML IV SCH ×2 (09:26→21:49)
[2021-10-16] MEDS: ENOXAPARIN 40MG/0.4ML SYR SUBCUT SCH ×2 (09:27→21:49)
[2021-10-16] MEDS: PROPOFOL 10MG/ML 100ML 100 ML IV PRN ×3 (10:52→19:31)
[2021-10-16] MEDS: PANTOPRAZOLE SODIUM 40 MG/VIAL IV SCH (11:43)
[2021-10-16] MEDS: SODIUM CHLORIDE 0.9% 1,000 ML IV SCH (11:43)
[2021-10-17] VITALS (95 sets, daily range): BP systolic 92–139; BP diastolic 40–99
[2021-10-17] MEDS: PROPOFOL 10MG/ML 100ML 100 ML IV PRN ×4 (00:15→17:15)
[2021-10-17] MEDS ORDERED: PHENYTOIN SODIUM 100MG/2ML VIAL IV ONE (00:33)
[2021-10-17] MEDS: PHENYTOIN SODIUM 300MG in SODIUM CHLORIDE 0.9% 50ML IV SCH (01:07)
[2021-10-17] MEDS: SODIUM CHLORIDE 0.9% 1,000 ML IV SCH ×3 (05:00→22:18)
[2021-10-17 05:53] LABS: BASOPHILS % 0.8 % (0.0-2.0); EOSINOPHILS % 3.6 % (0.0-5.0); HEMATOCRIT. 29.1 % (36.0-48.0); HEMOGLOBIN. 9.5 g/dL (12.0-16.0); LYMPHOCYTES % 29.8 % (20.0-50.0); MEAN CORPUSCULAR HEMOGLOBIN 30.8 pg (28.0-32.0); MEAN CORPUSCULAR VOLUME 94.8 fL (81.0-99.0); MEAN PLATELET VOLUME 8.3 fl (7.4-10.4); MONOCYTES % 13.2 % (2.0-8.0); NEUTROPHILS % 52.6 % (40.0-76.0); PLATELET 241 x1000/uL (130-400); RED BLOOD CELL COUNT 3.07 mill/uL (4.2-5.4); RED CELL DISTRIBUTION WIDTH 14.4 % (11.6-14.6)
[2021-10-17 06:10] LABS: CHLORIDE 115 mEq/L (98-107)
[2021-10-17] MEDS ORDERED: PROPOFOL 10MG/ML 100ML 100 ML IV PRN (07:45)
[2021-10-17] MEDS: ENOXAPARIN 40MG/0.4ML SYR SUBCUT SCH (08:03)
[2021-10-17 08:41] LABS: BG BASE EXCESS -2.5 mmol/L (-2.0-2.0); BG CARBOXYHEMOGLOBIN 0.3 % (0.5-1.5); BG DEOXYHEMOGLOBIN 1.7 % (0.0-5.0); BG FRACTION INSPIRED OXYGEN 30; BG HCO3 ACT 22.9 mmol/L (22.0-26.0); BG METHEMOGLOBIN 0.3 % (0.0-1.5); BG OXYGEN SATURATION 98.3 % (92.0-98.5); BG OXYHEMOGLOBIN 97.7 % (94.0-97.0); BG PCO2 42.1 mmHg (35.0-45.0); BG PH 7.354 (7.350-7.450); BG PO2 126.7 mmHg (75.0-100.0); BG SAMPLE SITE RIGHT BRACHIAL; BG VENT MODE VENT - AC
[2021-10-17] MEDS: LEVETIRACETAM 500MG PREMIX 100 ML IV SCH (08:52)
[2021-10-17] MEDS: PANTOPRAZOLE SODIUM 40 MG/VIAL IV SCH (08:52)
[2021-10-17] MEDS ORDERED: NON FORMULARY PATIENT HOME MED XX SCH (11:00)
[2021-10-17] MEDS: ARIPIPRAZOLE 5MG TABLET PO SCH (12:37)
[2021-10-17] MEDS: PHENYTOIN SODIUM EXTENDED 100MG CAPSULE PO SCH ×3 (12:37→21:02)
[2021-10-17] MEDS: CITALOPRAM HYDROBROMIDE 10MG TABLET PO SCH (12:38)
[2021-10-17] MEDS: LEVETIRACETAM 1000MG PREMIX 100 ML IV SCH ×2 (13:09→23:47)
[2021-10-17] MEDS: CARBAMAZEPINE 200MG TABLET PO SCH ×2 (14:33→17:13)
[2021-10-17] MEDS: FENTANYL 2500MCG/250ML PMX 250 ML IV PRN (16:56)
[2021-10-17] MEDS: MIDAZOLAM HCL 100 MG in SODIUM CHLORIDE 0.9% 80 ML IV PRN (16:57)
[2021-10-17] MEDS: MIRTAZAPINE 15MG TABLET PO SCH (17:13)
[2021-10-18] VITALS (71 sets, daily range): BP systolic 92–145; BP diastolic 28–92
[2021-10-18] MEDS ORDERED: PROPOFOL 10MG/ML 100ML 100 ML IV PRN
[2021-10-18 06:15] LABS: BASOPHILS % 0.4 % (0.0-2.0); EOSINOPHILS % 3.1 % (0.0-5.0); HEMOGLOBIN. 9.3 g/dL (12.0-16.0); LYMPHOCYTES % 26.9 % (20.0-50.0); MEAN CORPUSCULAR HEMOGLOBIN 31.5 pg (28.0-32.0); MEAN CORPUSCULAR VOLUME 94.9 fL (81.0-99.0); MONOCYTES % 12.9 % (2.0-8.0); NEUTROPHILS % 56.7 % (40.0-76.0); PLATELET 231 x1000/uL (130-400); RED BLOOD CELL COUNT 2.95 mill/uL (4.2-5.4); RED CELL DISTRIBUTION WIDTH 14.1 % (11.6-14.6)
[2021-10-18 06:23] LABS: CHLORIDE 113 mEq/L (98-107)
[2021-10-18] MEDS: CARBAMAZEPINE 200MG TABLET PO SCH ×2 (06:26→17:00)
[2021-10-18] MEDS: PHENYTOIN SODIUM EXTENDED 100MG CAPSULE PO SCH ×2 (06:26→14:00)
[2021-10-18] MEDS: PROPOFOL 10MG/ML 100ML 100 ML IV PRN (06:36)
[2021-10-18 07:42] LABS: BG BASE EXCESS -1.4 mmol/L (-2.0-2.0); BG CARBOXYHEMOGLOBIN 0.3 % (0.5-1.5); BG DEOXYHEMOGLOBIN 1.2 % (0.0-5.0); BG HCO3 ACT 22.8 mmol/L (22.0-26.0); BG METHEMOGLOBIN 0.1 % (0.0-1.5); BG OXYGEN SATURATION 98.8 % (92.0-98.5); BG OXYHEMOGLOBIN 98.4 % (94.0-97.0); BG PCO2 36.5 mmHg (35.0-45.0); BG PH 7.414 (7.350-7.450); BG PO2 136.7 mmHg (75.0-100.0); BG SAMPLE SITE RIGHT RADIAL; BG TOTAL HEMOGLOBIN 9.7 g/dL (12.0-18.0); BG VENT MODE VENT - AC
[2021-10-18] MEDS: FENTANYL 2500MCG/250ML PMX 250 ML IV PRN (08:30)
[2021-10-18] MEDS: PANTOPRAZOLE SODIUM 40 MG/VIAL IV SCH (09:21)
[2021-10-18] MEDS: LEVETIRACETAM 1000MG PREMIX 100 ML IV SCH ×2 (09:21→22:29)
[2021-10-18] MEDS: CITALOPRAM HYDROBROMIDE 10MG TABLET PO SCH (09:22)
[2021-10-18] MEDS: ENOXAPARIN 40MG/0.4ML SYR SUBCUT SCH (09:22)
[2021-10-18] MEDS: ARIPIPRAZOLE 5MG TABLET PO SCH (09:23)
[2021-10-18] MEDS ORDERED: PHENYTOIN 100 MG/4 ML UDC NG SCH (14:00)
[2021-10-18] MEDS: SODIUM CHLORIDE 0.9% 1,000 ML IV SCH (14:45)
[2021-10-18] MEDS ORDERED: NALOXONE HCL 0.4MG/ML VIAL IV PRN (16:30)
[2021-10-18] MEDS: MIRTAZAPINE 15MG TABLET PO SCH (17:00)
[2021-10-18] MEDS: MORPHINE SULFATE 2 MG/ML CPJ (NOT FOR IM USE) IV PRN ×2 (17:33→22:29)
[2021-10-18] MEDS ORDERED: PHENOL/SODIUM PHENOLATE 1.4% SRPAY 177ML MT PRN (18:00)
[2021-10-18] MEDS: PHENYTOIN 100 MG/4 ML UDC NG SCH (19:03)
[2021-10-19] VITALS (10 sets, daily range): BP systolic 63–147; BP diastolic 30–79
[2021-10-19] MEDS: PHENYTOIN 100 MG/4 ML UDC NG SCH ×2 (01:07→06:06)
[2021-10-19 06:01] LABS: BASOPHILS % 0.5 % (0.0-2.0); EOSINOPHILS % 3.1 % (0.0-5.0); HEMOGLOBIN. 9.5 g/dL (12.0-16.0); LYMPHOCYTES % 20.7 % (20.0-50.0); MEAN CORPUSCULAR HEMOGLOBIN 31.3 pg (28.0-32.0); MEAN CORPUSCULAR VOLUME 92.6 fL (81.0-99.0); MEAN PLATELET VOLUME 8.1 fl (7.4-10.4); MONOCYTES % 10.7 % (2.0-8.0); PLATELET 247 x1000/uL (130-400); RED BLOOD CELL COUNT 3.02 mill/uL (4.2-5.4); RED CELL DISTRIBUTION WIDTH 13.7 % (11.6-14.6)
[2021-10-19 06:03] LABS: CHLORIDE 111 mEq/L (98-107)
[2021-10-19] MEDS: CARBAMAZEPINE 200MG TABLET PO SCH (06:06)
[2021-10-19] MEDS: MORPHINE SULFATE 2 MG/ML CPJ (NOT FOR IM USE) IV PRN (06:07)
[2021-10-19] MEDS: PANTOPRAZOLE SODIUM 40 MG/VIAL IV SCH (08:45)
[2021-10-19] MEDS: CITALOPRAM HYDROBROMIDE 10MG TABLET PO SCH (08:45)
[2021-10-19] MEDS: LEVETIRACETAM 1000MG PREMIX 100 ML IV SCH (08:45)
[2021-10-19] MEDS: ENOXAPARIN 40MG/0.4ML SYR SUBCUT SCH (08:46)
[2021-10-19] MEDS: ARIPIPRAZOLE 5MG TABLET PO SCH (08:47)
== END 2021-10-19 10:20 | disposition left against medical advice (07) | DRG 53 ==
LOC: ER 13:40 → EDBEDREQ 14:34 → MICUSO 15:38 → EDBEDREQTM 15:39 → EDBEDREQ 15:39 → MICUSO 23:40
PROVIDERS: ADMIT Internal Medicine; ATTEND Internal Medicine
PROC: 5A1945Z Respiratory Ventilation, 24-96 Consecutive Hours (ICD-10-PCS; principal; 2021-10-15)
PROC: 02HV33Z Insertion of Infusion Device into Superior Vena Cava, Percutaneous Approach (ICD-10-PCS; 2021-10-15)
PROC: B548ZZA Ultrasonography of Superior Vena Cava, Guidance (ICD-10-PCS; 2021-10-15)
PROC: 0BH17EZ Insertion of Endotracheal Airway into Trachea, Via Natural or Artificial Opening (ICD-10-PCS; 2021-10-15)
PROC: 4A10X4Z Monitoring of Central Nervous Electrical Activity, External Approach (ICD-10-PCS; 2021-10-16)
DX: G40.901 Epilepsy, unspecified, not intractable, with status epilepticus (principal); J96.00 Acute respiratory failure, unspecified whether with hypoxia or hypercapnia; D64.9 Anemia, unspecified; J98.11 Atelectasis; N92.0 Excessive and frequent menstruation with regular cycle; Z53.29 Procedure and treatment not carried out because of patient's decision for other reasons; Z20.822 Contact with and (suspected) exposure to COVID-19; F12.90 Cannabis use, unspecified, uncomplicated; D25.9 Leiomyoma of uterus, unspecified; Z88.8 Allergy status to other drugs, medicaments and biological substances; Z79.899 Other long term (current) drug therapy; Z78.1 Physical restraint status; Z91.14 Patient's other noncompliance with medication regimen; Z91.19 Patient's noncompliance with other medical treatment and regimen
CPT/HCPCS: 36415; 36600; 70551; 71045; 76856; 76937; 80048; 80053; 80061; 80185; 80305; 80320; 81003; 82375; 82542; 82550; 82553; 82805; 82962; 83605; 83735; 84478; 84484; 84702; 85025; 87426; 93005; 94002; 94003; 99291; A6261; C1725; C1892; C9113; J1165; J1650; J1953; J2060; J2250; J2270; J2405; J2704; J3010; J3490; J7030; J7050; J7070; A4315; G0480

== ENCOUNTER 2023-08-11 07:15 | Emergency (ER) | payer MEDICAID, OTHER ==
[~2023-08-11] VITALS: Ht 167.6 cm; Wt 72.0 kg
[2023-08-11 07:24] VITALS: O2SAT 100
[2023-08-11 08:19] LABS: BASOPHILS % 0.4 % (0.0-2.0); DIFFERENTIAL COMMENT 0; EOSINOPHILS % 0.7 % (0.0-5.0); HEMATOCRIT. 30.6 % (36.0-48.0); HEMOGLOBIN. 9.1 g/dL (12.0-16.0); LYMPHOCYTES % 20.2 % (20.0-50.0); MEAN CORPUSCULAR HEMOGLOBIN 23.9 pg (28.0-32.0); MEAN CORPUSCULAR HGB CONC 29.7 g/dL (31.0-37.0); MEAN CORPUSCULAR VOLUME 80.6 fL (81.0-99.0); MEAN PLATELET VOLUME 7.3 fl (7.4-10.4); MONOCYTES % 7.8 % (2.0-8.0); NEUTROPHILS % 70.9 % (40.0-76.0); PLATELET 409 x1000/uL (130-400); RED BLOOD CELL COUNT 3.79 mill/uL (4.2-5.4); RED CELL DISTRIBUTION WIDTH 18.7 % (11.6-14.6); WHITE BLOOD COUNT 6.9 x1000/uL (4.5-11.0)
[2023-08-11 08:35] LABS: ALANINE AMINOTRANSFERASE 12 IU/L (10-49); ASPARTATE AMINOTRANSFERASE 17 IU/L (<34); BILIRUBIN TOTAL 0.3 mg/dL (0.1-1.0); CALCIUM 9.6 mg/dL (8.7-10.4); CARBON DIOXIDE 24 mEq/L (21-32); CHLORIDE 108 mEq/L (98-107); CREATININE 0.7 mg/dL (0.6-1.0); GLUCOSE 103 mg/dL (70-105); POTASSIUM 3.6 mEq/L (3.5-5.1); PROTEIN TOTAL 8.6 g/dL (6.0-8.3); SODIUM 140 mEq/L (136-145); UREA NITROGEN BLOOD 8 mg/dL (9-23)
[2023-08-11 08:37] LABS: HCG SCREEN NEGATIVE
[2023-08-11 08:44] LABS: PROTHROMBIN TIME 10.3 sec (9.6-11.0)
[2023-08-11 08:50] LABS: B-HCG QUANTITATIVE < 1 mIU/mL (<3)
[2023-08-11 10:24] LABS: CLARITY URINE CLOUDY (CLEAR); COLOR URINE RED (YELLOW); GLUCOSE URINE NEGATIVE (NEGATIVE); KETONES URINE NEGATIVE (NEGATIVE); LEUKOCYTE ESTERASE URINE 2+ (NEGATIVE); NITRITE URINE POSITIVE (NEGATIVE); OCCULT BLOOD URINE 3+ (NEGATIVE); PH URINE 5.5 (4.5-8.0); PROTEIN URINE 3+ (NEGATIVE); SPECIFIC GRAVITY URINE 1.041 (1.005-1.030); UROBILINOGEN URINE 0.2 E.U./dL (0.2-1.0)
[2023-08-11 10:55] LABS: BACTERIA URINE 2+; RBC URINE TNTC /hpf (0-2); SQUAMOUS EPITHELIAL CELL URINE 1+ /lpf (RARE/1+); WBC URINE 50-100 /hpf (0-2); YEAST URINE NONE SEEN
[2023-08-11] MEDS ORDERED: KETOROLAC 60MG/2ML VIAL IM ONE (12:00)
[2023-08-11] MEDS ORDERED: NITR-87 MT (12:00)
[2023-08-11 13:23] VITALS: BP 137/83; PULSE 83; RESP 20; TEMP 98.1
== END 2023-08-11 13:24 | disposition home or self-care (01) ==
LOC: ER 07:15
DX: N92.0 Excessive and frequent menstruation with regular cycle (principal); N39.0 Urinary tract infection, site not specified; D25.9 Leiomyoma of uterus, unspecified; D64.9 Anemia, unspecified; Z79.899 Other long term (current) drug therapy
CPT/HCPCS: 99285; 76830; 76856; 80053; 81003; 81025; 84703; 84702; 83690; 85025; 85610; 87086; 36415; 96372; J1885

== ENCOUNTER 2023-09-06 15:35 | Emergency (ER) | payer MEDICAID ==
[~2023-09-06] VITALS: Ht 167.6 cm; Wt 60.0 kg
[~2023-09-06 15:35] MED LIST changes: +NITR-87 MT
[2023-09-06 16:03] VITALS: O2SAT 100
[2023-09-06 16:50] LABS: BASOPHILS % 1.2 % (0.0-2.0); DIFFERENTIAL COMMENT 0; HEMATOCRIT. 28.8 % (36.0-48.0); HEMOGLOBIN. 8.5 g/dL (12.0-16.0); LYMPHOCYTES % 24.4 % (20.0-50.0); MEAN CORPUSCULAR HEMOGLOBIN 24.7 pg (28.0-32.0); MEAN CORPUSCULAR HGB CONC 29.5 g/dL (31.0-37.0); MEAN CORPUSCULAR VOLUME 83.7 fL (81.0-99.0); MEAN PLATELET VOLUME 7.4 fl (7.4-10.4); NEUTROPHILS % 61.4 % (40.0-76.0); PLATELET 376 x1000/uL (130-400); RED BLOOD CELL COUNT 3.44 mill/uL (4.2-5.4); RED CELL DISTRIBUTION WIDTH 19.5 % (11.6-14.6); WHITE BLOOD COUNT 6.9 x1000/uL (4.5-11.0)
[2023-09-06 17:06] LABS: ALANINE AMINOTRANSFERASE 17 IU/L (10-49); ALBUMIN 4.7 g/dL (3.2-4.8); ASPARTATE AMINOTRANSFERASE 17 IU/L (<34); BILIRUBIN TOTAL 0.2 mg/dL (0.1-1.0); CALCIUM 8.9 mg/dL (8.7-10.4); CARBON DIOXIDE 25 mEq/L (21-32); CHLORIDE 108 mEq/L (98-107); CREATININE 0.8 mg/dL (0.6-1.0); GLUCOSE 86 mg/dL (70-105); POTASSIUM 4.1 mEq/L (3.5-5.1); PROTEIN TOTAL 7.8 g/dL (6.0-8.3); SODIUM 138 mEq/L (136-145); UREA NITROGEN BLOOD 5 mg/dL (9-23)
[2023-09-06 19:49] LABS: HCG SCREEN NEGATIVE
[2023-09-06] MEDS ORDERED: MORPHINE SULFATE 2 MG/ML CPJ (NOT FOR IM USE) IV ONE (22:15)
[2023-09-06] MEDS ORDERED: T3 PO (23:02)
[2023-09-06] MEDS ORDERED: MORPHINE SULFATE 10 MG/ML CPJ IM ONE (23:30)
[2023-09-07 01:01] VITALS: BP 107/69; PULSE 71; RESP 16; TEMP 98.3
== END 2023-09-07 01:02 | disposition home or self-care (01) ==
LOC: ER 15:35
DX: D25.9 Leiomyoma of uterus, unspecified (principal); D64.9 Anemia, unspecified; Z88.8 Allergy status to other drugs, medicaments and biological substances
CPT/HCPCS: 99285; 76830; 76856; 80053; 84703; 85025; 86850; 86900; 86901; 36415; 96372; J2270

== ENCOUNTER 2023-10-17 13:50 | Emergency (ER) | payer MEDICAID ==
[~2023-10-17] VITALS: Ht 165.1 cm; Wt 63.5 kg
[~2023-10-17 13:50] MED LIST changes: +T3 PO
[2023-10-17 14:09] VITALS: BP 135/80; TEMP 98.2; O2SAT 100
[2023-10-17 15:00] LABS: BASOPHILS % 1.2 % (0.0-2.0); EOSINOPHILS % 5.9 % (0.0-5.0); HEMATOCRIT. 38.3 % (36.0-48.0); HEMOGLOBIN. 12.5 g/dL (12.0-16.0); LYMPHOCYTES % 25.9 % (20.0-50.0); MEAN CORPUSCULAR HEMOGLOBIN 29.9 pg (28.0-32.0); MEAN CORPUSCULAR HGB CONC 32.6 g/dL (31.0-37.0); MEAN CORPUSCULAR VOLUME 91.7 fL (81.0-99.0); MEAN PLATELET VOLUME 7.3 fl (7.4-10.4); MONOCYTES % 8.3 % (2.0-8.0); NEUTROPHILS % 58.7 % (40.0-76.0); PLATELET 438 x1000/uL (130-400); RED BLOOD CELL COUNT 4.17 mill/uL (4.2-5.4); RED CELL DISTRIBUTION WIDTH 24.2 % (11.6-14.6)
[2023-10-17 15:02] LABS: ADD RBC MORPHOLOGY YES; DIFFERENTIAL COMMENT 1
[2023-10-17 15:12] LABS: ALANINE AMINOTRANSFERASE 15 IU/L (10-49); ALBUMIN 4.9 g/dL (3.2-4.8); ASPARTATE AMINOTRANSFERASE 18 IU/L (<34); BILIRUBIN TOTAL < 0.2 mg/dL (0.1-1.0); CARBON DIOXIDE 29 mEq/L (21-32); CHLORIDE 105 mEq/L (98-107); CREATININE 0.9 mg/dL (0.6-1.0); GLUCOSE 85 mg/dL (70-105); PROTEIN TOTAL 7.4 g/dL (6.0-8.3); SODIUM 139 mEq/L (136-145); UREA NITROGEN BLOOD 7 mg/dL (9-23)
[2023-10-17 15:38] LABS: CLARITY URINE TURBID (CLEAR); COLOR URINE RED (YELLOW); GLUCOSE URINE NEGATIVE (NEGATIVE); KETONES URINE NEGATIVE (NEGATIVE); LEUKOCYTE ESTERASE URINE 2+ (NEGATIVE); NITRITE URINE NEGATIVE (NEGATIVE); OCCULT BLOOD URINE 3+ (NEGATIVE); PH URINE 8.5 (4.5-8.0); PROTEIN URINE 1+ (NEGATIVE); SPECIFIC GRAVITY URINE 1.019 (1.005-1.030); UROBILINOGEN URINE 0.2 E.U./dL (0.2-1.0)
[2023-10-17 15:56] LABS: RBC URINE TNTC /hpf (0-2); WBC URINE 0-2 /hpf (0-2)
[2023-10-17 15:57] LABS: BACTERIA URINE TRACE; SQUAMOUS EPITHELIAL CELL URINE FEW /lpf (RARE/1+)
[2023-10-17 16:19] LABS: ANISOCYTOSIS 1+; PLATELET ESTIMATE NORMAL
[2023-10-17] MEDS: IBUPROFEN 600MG TABLET PO ONE (17:50)
[2023-10-17] MEDS: MORPHINE SULFATE 10 MG/ML CPJ (NOT FOR IM USE) IM ONE (18:02)
[2023-10-17] MEDS ORDERED: T3 PO ×2 (18:07→18:10)
[2023-10-17 18:21] VITALS: PULSE 71; RESP 16
== END 2023-10-17 18:22 | disposition home or self-care (01) ==
LOC: ER 14:08
DX: S30.0XXA Contusion of lower back and pelvis, initial encounter (principal); N93.9 Abnormal uterine and vaginal bleeding, unspecified; D64.9 Anemia, unspecified; Z79.899 Other long term (current) drug therapy; W18.39XA Other fall on same level, initial encounter; Y93.89 Activity, other specified; Y92.89 Other specified places as the place of occurrence of the external cause; Y99.8 Other external cause status
CPT/HCPCS: 80053; 81003; 81025; 85025; 86850; 86900; 86901; 36415; 76856; 96372; 99285; J2270; Z7610 ×2